=== PATIENT | male | born 2000 | race Hispanic/Latino ===

== ENCOUNTER 2021-12-16 03:28 | Emergency (ER) | payer SELFPAY ==
[~2021-12-16] VITALS: Ht 175.3 cm; Wt 95.3 kg
[2021-12-16 03:43] VITALS: BP 119/75
== END 2021-12-16 04:10 | disposition left against medical advice (07) ==
LOC: EDH 03:28
DX: R06.02 Shortness of breath (principal); F32.A Depression, unspecified; Z53.21 Procedure and treatment not carried out due to patient leaving prior to being seen by health care provider

== ENCOUNTER 2021-12-18 08:39 | Emergency (ER) | payer SELFPAY ==
[~2021-12-18] VITALS: Ht 172.7 cm; Wt 95.3 kg
[2021-12-18] MEDS ORDERED: FENTANYL CITRATE PF 50 MCG/1 ML 2ML VIAL ONE (09:25)
[2021-12-18] MEDS ORDERED: FENTANYL 100 MCG/HR PATCH TD SCH (09:30)
[2021-12-18] MEDS ORDERED: IBUP-2070 PO (09:50)
[2021-12-18 10:19] VITALS: BP 122/85
== END 2021-12-18 10:22 | disposition home or self-care (01) ==
LOC: EDH 08:39
DX: S43.005A Unspecified dislocation of left shoulder joint, initial encounter (principal); X50.9XXA Other and unspecified overexertion or strenuous movements or postures, initial encounter; Y93.89 Activity, other specified; Y92.098 Other place in other non-institutional residence as the place of occurrence of the external cause; Y99.8 Other external cause status
CPT/HCPCS: 23650; 73020 ×2; 99284; J3010